=== PATIENT | male | born 1995 | race Caucasian/White ===

== ENCOUNTER 2019-09-19 10:32 | Emergency (ER) | payer OTHER ==
[~2019-09-19 10:32] MED LIST: CEPL MM; GOOD SENSE OMEP20 MG PO
[2019-09-19 10:38] VITALS: Ht 175.3 cm
[2019-09-19 11:29] LABS: microscopic required? NO
[2019-09-19 11:33] LABS: BASOPHIL % 1.1 % (0-2); PLATELET COUNT 163 x10^3mcL (130-400); RED CELL DISTRIBUTION WIDTH 12.3 % (11.5-14.5)
[2019-09-19 11:45] LABS: CALCIUM 9.5 mg/dL (8.5-10.1); CARBON DIOXIDE 23.1 mmol/L (21-32); CHLORIDE SERUM 103 mmol/L (98-107); GFR1 > 60 mL/min; GLUCOSE SERUM 92 mg/dL (74-106); POTASSIUM SERUM 3.8 mmol/L (3.5-5.1); SODIUM SERUM 139 mmol/L (136-145)
[2019-09-19 11:51] LABS: ALKALINE PHOSPHATASE 72 U/L (46-116); ALT/SGPT 18 U/L (16-63); AST/SGOT 15 U/L (15-37); BILIRUBIN DIRECT 0.21 mg/dL (0.0-0.2); LIPASE 63 IU/L (73-393); TOTAL PROTEIN, SERUM 8.1 g/dL (6.4-8.2)
[2019-09-19 12:52] LABS: UA SPECIFIC GRAVITY >=1.030 (1.005-1.035); urine erythrocyte NEGATIVE (NEGATIVE)
[2019-09-19 13:06] VITALS: BP 134/80
== END 2019-09-19 13:06 | disposition home or self-care (01) ==
LOC: ED 10:32
PROVIDERS: Emergency Medicine
DX: R10.84 Generalized abdominal pain (principal); E80.6 Other disorders of bilirubin metabolism
CPT/HCPCS: Q0092